=== PATIENT | male | born 1940 | race Caucasian/White ===

== ENCOUNTER 2017-05-01 21:03 | Inpatient (IN) | payer MEDICARE, OTHER ==
--- NOTE | 2017-05-01 21:15 | ER Document Report ---
ED General - General Stated Complaint: DIFFICULTY BREATHING Time Seen by Provider: 05/01/17 21:10 Mode of Arrival: Medic Information source: Emergency Med Personnel Notes: This is a 77-year-old male who is brought from [place] [facility] for respiratory distress and altered mental status. Per EMS, senior living staff reports that patient was altered after his shower this evening and did not eat dinner. They were concerned about his lung sounds and so was a administered two A&A nebs. Upon EMS arrival, patient was completing his second neb treatment and was 89%. EMS was concerned that perhaps he was fluid overloaded. Patient reportedly has a history of prostate cancer, advanced Alzheimer's, and hyperlipidemia. No known history of CHF TRAVEL OUTSIDE OF THE [place] IN LAST 30 DAYS: No - Related Data Allergies/Adverse Reactions: No Known Allergies Allergy (Unverified 05/01/17 21:34) Past Medical History - Social History Smoking Status: Unknown if Ever Smoked Family History: Other - unknown Review of Systems - Review of Systems -: Yes ROS unobtainable due to patient's medical condition - pt nonverbal Physical Exam - Vital signs Vitals: Pulse Resp Pulse Ox 99 22 H 97 05/01/17 21:05 05/01/17 21:05 05/01/17 21:05 - Notes Notes: PHYSICAL EXAMINATION: GENERAL: Ill-appearing elderly male, awake, nonverbal (baseline for pt), eyes open and following some commands. HEAD: Atraumatic, normocephalic. EYES: Pupils equal round and reactive to light, extraocular movements intact, sclera anicteric, conjunctiva are normal. ENT: nares patent, mm dry NECK: supple without lymphadenopathy LUNGS: Diminished bibasilar breath sounds, otherwise Breath sounds clear to auscultation bilaterally anteriorly. HEART: Regular rate and rhythm without murmurs ABDOMEN: Soft, nontender, normoactive bowel sounds. No masses appreciated. EXTREMITIES: No edema noted NEUROLOGICAL: Exam limited secondary to mental status/dementia. No obvious facial droop. Equal sped teacher strength bilaterally. No obvious focal motor deficit appreciated. SKIN: Warm, Dry, normal turgor, no rashes or lesions noted. Course - Re-evaluation Re-evalutation: 05/01/17 21:26 Patient presents acutely ill. However per EMS he has improved significantly since their arrival on scene. He is alert. He appears to be protecting his airway and responding well to BiPAP. - Vital Signs Vital signs: Temp Pulse Resp BP Pulse Ox 99.5 F 92 19 146/81 H 94 05/02/17 04:01 05/02/17 05:31 05/02/17 04:01 05/02/17 04:01 05/02/17 04:01 - Laboratory Result Diagrams: 05/01/17 21:08 05/02/17 02:56 Laboratory results interpreted by me: 05/01/17 05/01/17 05/01/17 21:07 21:08 21:08 WBC 10.6 H RDW 14.7 H Lymphocytes % 11.1 L BUN 26 H Glucose 129 H POC Glucose 139 H Lactic Acid Urine Protein Urine Blood Urine Ascorbic Acid 05/01/17 05/01/17 05/02/17 21:55 22:14 02:56 WBC RDW Lymphocytes % BUN Glucose POC Glucose Lactic Acid 2.4 H 3.8 H Urine Protein 30 H Urine Blood LARGE H Urine Ascorbic Acid 40 H 05/02/17 02:56 WBC RDW Lymphocytes % BUN 24 H Glucose 170 H POC Glucose Lactic Acid Urine Protein Urine Blood Urine Ascorbic Acid - Diagnostic Test Radiology reviewed: Reports reviewed - CTA chest: no obvious PE, no infiltrate - EKG Interpretation by Me Additional EKG results interpreted by me: 05/02/17 01:49 EKG shows normal sinus rhythm with a rate of 87. If in 3 and aVF. R waves noted in V1 and V2. There is no ST segment elevation. There is some ST segment depression V3 through V6. There is no prior EKG for comparison. 05/02/17 01:50 Critical Care Note - Critical Care Note Total time excluding time spent on procedures (mins): 45 - minutes of critical care time spent in direct contact evaluating and reevaluating the patient, treating symptoms, reviewing labs and studies and speaking with family and consultants excluding any procedures Discharge - Discharge Clinical Impression: Respiratory distress Fever Qualifiers: Fever type: unspecified Qualified Code(s): R50.9 - Fever, unspecified Sepsis Qualifiers: Sepsis type: sepsis due to unspecified organism Qualified Code(s): A41.9 - Sepsis, unspecified organism Condition: Serious Disposition: ADMITTED INPATIENT Admitting Provider: Hospitalist - Dr. Davis Unit Admitted: [facility]
[2017-05-01 21:29] LABS: ABSOLUTE BASOPHILS # (AUTO) 0.1 10^3/uL (0.0-0.2); ABSOLUTE EOSINOPHILS # (AUTO) 0.5 10^3/uL (0.0-0.6); ABSOLUTE LYMPHOCYTES (AUTO) 1.2 10^3/uL (0.5-4.7); ABSOLUTE NEUT (AUTO) 7.9 10^3/uL (1.7-8.2); BASOPHILS % (AUTO) 0.6 % (0-2); EOSINOPHILS % (AUTO) 4.9 % (0-6); HEMATOCRIT 45.2 % (37.9-51.0); HEMOGLOBIN 14.9 g/dL (13.5-17.0); HGB HCT DIFFERENCE -0.5; LYMPHOCYTES % (AUTO) 11.1 % (13-45); MEAN CORPUSCULAR HEMOGLOBIN 28.8 pg (27.0-33.4); MEAN CORPUSCULAR VOLUME 87 fl (80-97); RED BLOOD COUNT 5.18 10^6/uL (4.35-5.55); RED CELL DISTRIBUTION WIDTH 14.7 % (11.5-14.0); SEGMENTED NEUTROPHILS % (AUTO) 74.4 % (42-78); WHITE BLOOD COUNT 10.6 10^3/uL (4.0-10.5)
--- NOTE | 2017-05-01 21:35 | RADIOLOGY REPORT (SQ) ---
EXAM DESCRIPTION: CHEST SINGLE VIEW COMPLETED DATE/TIME: 05/01/2017 9:18 pm REASON FOR STUDY: respiratory distress COMPARISON: None. EXAM PARAMETERS: NUMBER OF VIEWS: One view. TECHNIQUE: Single frontal radiographic view of the chest acquired. RADIATION DOSE: NA LIMITATIONS: None. FINDINGS: LUNGS AND PLEURA: No opacities, masses or pneumothorax. No pleural effusion. MEDIASTINUM AND HILAR STRUCTURES: No masses. Contour normal. HEART AND VASCULAR STRUCTURES: Heart normal in size. Normal vasculature. BONES: No acute findings. HARDWARE: None in the chest. OTHER: No other significant finding. IMPRESSION: NO ACUTE RADIOGRAPHIC FINDING IN THE CHEST. TECHNICAL DOCUMENTATION: JOB ID: [id number]
[2017-05-01 21:46] LABS: ALANINE AMINOTRANSFERASE 21 U/L (21-72); ALBUMIN 3.9 g/dL (3.5-5.0); ALKALINE PHOSPHATASE 105 U/L (38-126); ANION GAP 11 (5-19); ASPARTATE AMINO TRANSFERASE 23 U/L (17-59); BILIRUBIN,DIRECT 0.3 mg/dL (0.0-0.4); BILIRUBIN,TOTAL 0.6 mg/dL (0.2-1.3); BLOOD UREA NITROGEN 26 mg/dL (7-20); CALCIUM 9.8 mg/dL (8.4-10.2); CARBON DIOXIDE 27 mmol/L (22-30); CHLORIDE 103 mmol/L (98-107); CREATINE KINASE 78 U/L (55-170); CREATININE RESULT 1.05 mg/dL (0.52-1.25); GLUCOSE 129 mg/dL (75-110); SODIUM 140.6 mmol/L (137-145); TOTAL PROTEIN 7.2 g/dL (6.3-8.2)
[2017-05-01 21:59] LABS: CREATINE KINASE MB < 0.22 ng/mL (<4.55)
[2017-05-01] MEDS ORDERED: ACETAMINOPHEN 325 MG SUPP.RECT PR ONE (22:00)
[2017-05-01 22:06] LABS: VENOUS BLOOD BASE EXCESS -0.3 mmol/L; VENOUS BLOOD HCO3 27.4 mmol/L (20-32); VENOUS BLOOD PCO2 54.7 mmHg (35-63); VENOUS BLOOD PH 7.32 (7.30-7.42)
[2017-05-01 22:20] LABS: APPEARANCE,URINE SLIGHTLY-CLOUDY; BILIRUBIN,URINE NEGATIVE (NEGATIVE); CALCIUM OXALATE CRYSTALS,URINE RARE /HPF; GLUCOSE, URINE NEGATIVE (NEGATIVE); KETONES,URINE NEGATIVE (NEGATIVE); LEUKOCYTE ESTERASE,URINE NEGATIVE (NEGATIVE); NITRITE,URINE NEGATIVE (NEGATIVE); PROTEIN,URINE 30 mg/dL (NEGATIVE); UROBILINOGEN,URINE NEGATIVE mg/dL (<2.0)
[2017-05-01] MEDS ORDERED: LEVOFLOXACIN 750 MG/D5W RTU 150 ML IV ONE (22:25)
[2017-05-01] MEDS ORDERED: PIPERACILLIN/TAZOBACTAM 3.375 GM VIAL IV ONE (22:25)
--- NOTE | 2017-05-01 22:56 | RADIOLOGY REPORT (SQ) ---
EXAM DESCRIPTION: CT HEAD WITHOUT COMPLETED DATE/TIME: 05/01/2017 10:38 pm REASON FOR STUDY: altered mental status COMPARISON: 08/10/2009 TECHNIQUE: Axial images acquired through the brain without intravenous contrast. Images reviewed wi th bone, brain and subdural windows. Images stored on PACS. All CT scanners at this facility use dose modulation, iterative reconstruction, and/or weight based d osing when appropriate to reduce radiation dose to as low as reasonably achievable (ALARA). [facility]: Dose Right [facility]: CareDose [facility]: Dose Right [facility]: Teradose 4D [facility]: [employer] RADIATION DOSE: 64.61mGy. LIMITATIONS: None. FINDINGS: VENTRICLES: Prominent. CEREBRUM: No masses. No hemorrhage. No midline shift. Areas of low density in the white matter mos t likely due to chronic micro-vascular ischemic change. No evidence for acute infarction. CEREBELLUM: No masses. No hemorrhage. No alteration of density. No evidence for acute infarction. EXTRAAXIAL SPACES: Age-related involutional change. No fluid collections. No masses. ORBITS AND GLOBE: No intra- or extraconal masses. Normal contour of globe without masses. CALVARIUM: No fracture. PARANASAL SINUSES: Mucosal thickening with bilateral maxillary sinus mucous retention cyst versus austin yps. No air-fluid levels. SOFT TISSUES: No mass or hematoma. OTHER: No other significant finding. IMPRESSION: CHRONIC CHANGES OF ATROPHY AND MICROVASCULAR ISCHEMIA. CHRONIC PARANASAL SINUS DISEASE. NO ACUTE PROCESS. TECHNICAL DOCUMENTATION: JOB ID: [id number] Quality ID # [id number]: Final reports with documentation of one or more dose reduction techniques (e.g., Au tomated exposure control, adjustment of the mA and/or kV according to patient size, use of iterative reconstruction technique) 2010 [employer]- All Rights Reserved
--- NOTE | 2017-05-01 23:01 | RADIOLOGY REPORT (SQ) ---
EXAM DESCRIPTION: CT CHEST WITHOUT COMPLETED DATE/TIME: 05/01/2017 10:40 pm REASON FOR STUDY: respiratory distress, concern for infiltrate COMPARISON: 08/10/2009 TECHNIQUE: CT scan performed of the chest without intravenous contrast. Images reviewed with lung, soft tissue and bone windows. Reconstructed coronal and sagittal MPR images reviewed. All images st ored on PACS. All CT scanners at this facility use dose modulation, iterative reconstruction, and/or weight based d osing when appropriate to reduce radiation dose to as low as reasonably achievable (ALARA). [facility]: Dose Right [facility]: CareDose [facility]: Dose Right [facility]: Teradose 4D [facility]: [employer] RADIATION DOSE: 14.41 mGy. LIMITATIONS: RESPIRATORY MOTION. FINDINGS: LUNGS AND PLEURA: No masses, infiltrates, pneumothorax. No pleural effusions, calcificati ons. HILAR AND MEDIASTINAL STRUCTURES: No identified masses or abnormal nodes. No obvious aneurysm. HEART AND VASCULAR STRUCTURES: Atherosclerotic calcifications including coronary artery calcification s. No aneurysm. No pericardial effusion. UPPER ABDOMEN: No significant findings. Stable appearance a renal cyst. Limited exam. THYROID AND OTHER SOFT TISSUES: No masses. No adenopathy. BONES: Slight progression degenerative change without acute fracture or suspicious osseous lesion. HARDWARE: None in the chest. OTHER: No other significant findings. IMPRESSION: NO ACUTE INTRATHORACIC PROCESS IDENTIFIED. NO SIGNIFICANT CHANGE FROM PRIOR STUDY. TECHNICAL DOCUMENTATION: JOB ID: [id number] Quality ID # [id number]: Final reports with documentation of one or more dose reduction techniques (e.g., Au tomated exposure control, adjustment of the mA and/or kV according to patient size, use of iterative reconstruction technique) 2010 [employer]- All Rights Reserved
[2017-05-01] MEDS ORDERED: ASPIRIN 300 MG SUPP, RECTAL PR ONE (23:04)
--- NOTE | 2017-05-02 01:01 | RADIOLOGY REPORT (SQ) ---
EXAM DESCRIPTION: CTA CHEST COMPLETED DATE/TIME: 05/02/2017 12:26 am REASON FOR STUDY: Respiratory distress, shortness of breath, acute respiratory failure, decreased O2 saturation COMPARISON: CT chest 05/01/2017, 08/10/2009, chest x-ray 05/01/2017. MRI abdomen 08/30/2009 TECHNIQUE: CT scan of the chest performed using helical scanning technique with dynamic intravenous contrast injection. Images reviewed with lung, soft tissue and bone windows. Reconstructed coronal and sagittal MPR images reviewed. Additional 3 dimensional post-processing performed to develop Maximal Intensity Projection images ([place] P). All images stored on PACS. All CT scanners at this facility use dose modulation, iterative reconstruction, and/or weight based d osing when appropriate to reduce radiation dose to as low as reasonably achievable (ALARA). [facility]: Dose Right [facility]: CareDose [facility]: Dose Right [facility]: Teradose 4D [facility]: [employer] CONTRAST TYPE AND DOSE: 71 mL Isovue 370- low osmolar. RENAL FUNCTION: Creatinine 1.05 RADIATION DOSE: 51.36 mGy. LIMITATIONS: The patient was unable to follow breathing instructions or to raise his arms. There is extensive motion artifact. There is streak artifact from the patient's arms along the body FINDINGS: LUNGS AND PLEURA: No consolidation, pleural effusion or pneumothorax. AORTA AND GREAT VESSELS: No thoracic aortic aneurysm. HEART: No pericardial effusion. Coronary arteries calcifications are noted. PULMONARY ARTERIES: Extensive motion artifact, no obvious emboli visualized in the main pulmonary art eries or the visualized segmental branches. HILAR AND MEDIASTINAL STRUCTURES: No identified masses or abnormal nodes. HARDWARE: None in the chest. UPPER ABDOMEN: Multiple low density lesions at the visualized kidneys, may represent cysts. Atherosc lerotic calcifications with irregular intramural thrombus in the visualized abdominal aorta. 3.4 x 3 .2 cm infrarenal abdominal aortic aneurysm. No periaortic fluid collection. THYROID AND OTHER SOFT TISSUES: No masses. No adenopathy. BONES: Degenerative changes in the spine. Compression deformity through the superior endplate of T12 vertebral body, new since the prior CT chest from 08/10/2009. 3D MIPS: Confirm above findings. IMPRESSION: Study degraded by extensive motion artifact. No obvious pulmonary emboli. If clinical concern persists, a repeat study can be obtained when patient will be able to cooperate with position ing. Atherosclerotic calcifications with irregular intramural thrombus in the visualized abdominal aorta. 3.4 x 3.2 cm infrarenal abdominal aortic aneurysm. Compression deformity through the superior endplate of T12 vertebral body, of indeterminate age, new since the prior CT chest from 08/10/2009. Please correlate with point tenderness. If there is clinic al concern for acute fracture, further evaluation with MRI can be obtained. TECHNICAL DOCUMENTATION: JOB ID: [id number] OH-64 Quality ID # 436: Final reports with documentation of one or more dose reduction techniques (e.g., Au tomated exposure control, adjustment of the mA and/or kV according to patient size, use of iterative reconstruction technique) 2010 [employer]- All Rights Reserved
[2017-05-02] MEDS ORDERED: ALBUTEROL SULFATE 0.083% NEB 2.5 MG/3 ML AMPUL NEB ONE (01:04)
[2017-05-02] MEDS ORDERED: NORMAL SALINE 500 ML IV ONE (01:21)
[2017-05-02] MEDS ORDERED: METOPROLOL TARTRATE PF/INJ 5 MG/5 ML SDV IV ONE (02:24)
[2017-05-02] MEDS ORDERED: METHYLPREDNISOLONE INJ 40 MG/1 ML SDV ONE (02:45)
[2017-05-02] MEDS ORDERED: DEXTROSE 50%-WATER 25 GM/50 ML DISP.SYRIN IV PRN ×2 (02:59)
[2017-05-02] MEDS ORDERED: DEXTROSE 40% GEL 15 GM TUBE PO PRN ×2 (02:59)
[2017-05-02] MEDS ORDERED: INSULIN LISPRO 100 UNIT/ML 3 ML VIAL SUBCUT PRN (02:59)
[2017-05-02] MEDS ORDERED: GLUCAGON,HUMAN RECOMB 1 MG INJ IM PRN (02:59)
[2017-05-02] MEDS ORDERED: METHYLPREDNISOLONE INJ 40 MG/1 ML SDV IV ONE (03:00)
[2017-05-02] MEDS ORDERED: NORMAL SALINE 1000 ML 1,000 ML IV PRN (03:01)
[2017-05-02] MEDS ORDERED: ALBUTEROL SULFATE 0.083% NEB 2.5 MG/3 ML AMPUL NEB PRN ×2 (03:01→03:22)
[2017-05-02] MEDS ORDERED: ACETAMINOPHEN 650 MG SUPP.RECT PR PRN (03:08)
[2017-05-02 03:09] LABS: ADD ON TESTING BLD IN LAB ACKNOWLEDGE
--- NOTE | 2017-05-02 03:21 | PDOC H&P ---
History of Present Illness Admission Date/PCP: 05/02/17 01:52 BEE JENNINGS Patient complains of: DIFFICULTY BREATHING History of Present Illness: SOFÍA GREENBERG is a 77 year old male, resident of [facility] , with history of prostate cancer, hyperlipidemia, and advanced Alzheimer's, and no known history of congestive heart failure, who presents to the emergency room for evaluation of above complaint. Patient has been discussed with emergency room physician who evaluated the patient. Patient is aphasic, and basically not interactive with his surroundings, and is able to provide no history whatsoever in terms of acute or chronic events, review of systems, personal habits, family history, etc. No friends or family are present. No old inpatient records available for review.. . Was noted by [facility] staff to not have eaten his evening meal, along with coarse respiratory sounds. Was given 2 duo nebs at the [facility]. On EMS arrival, as he was receiving a second DuoNeb, saturation was 89%. No further information available this point in time. Laboratory results are listed in [facility] and are reviewed. X-ray summary results are listed below, with full report(s) reviewed. . EKG reviewed. No old EKG available for comparison. Social history/personal habits: Resident of [facility]. No further information available this point in time. No known drug allergies. Home medications initially autopopulated into [employer] may not accurately reflect patient's true medications, dosages, and/or frequencies. plastic technician to reconcile medications. Unfortunately, patient not able to provide any information related to medications/dosages/frequencies. REVIEW OF SYSTEMS: See history and present illness. No further information available this point in time. PHYSICAL EXAMINATION: 5 feet 8 inches tall. 77.8 kg. BMI 26.1 kg/m. Pulse 107 and regular. Blood pressure 174/83. 93% saturation on 2 L oxygen per nasal cannula. Respirations are 32, with somewhat coarse upper airway sounds, which which clear almost completely with nasotracheal suctioning by respiratory therapy. Remains quite tachypneic, however. Making mild occasional use of accessory respiratory muscles. Somewhat overweight but also somewhat stocky otherwise well-developed male appearing approximately his stated age. Does not open eyes when name is called in a loud voice. Again, basically not interactive with his surroundings. Maintaining airway well. Skin is warm and dry. No grossly obvious evidence of rash in areas of skin examined. No subcutaneous nodules palpated. ENT: Hearing difficult to evaluate due to his current status. Eyes: No scleral icterus. Pupils equal and reactive to light at 4 mm. [place] conjunctivae. No raccoon eyes. Neck is nontender to palpation. Midline trachea. No palpable thyroid nodule mass enlargement or tenderness. Lymphatic: No palpable cervical or clavicular nodes. Neck and lymphatic exams limited by patient body habitus. Psychiatric: Cannot be adequately evaluated due to his current status.. Lungs: Auscultation reveals equal breath sounds bilaterally. No use of accessory respiratory muscles. As noted above, initially coarse upper airway sounds, which almost completely clear with nasotracheal suctioning. Mild brief expiratory wheezing, perhaps a bit more noticeable on the left. Cardiovascular: Heart regular rate and rhythm, without gallop murmur or rub. No carotid or abdominal aortic bruits. No ankle or pedal edema. Palpable dorsalis pedis pulses. Abdomen:soft slightly distended nontender with positive bowel sounds. Unable to adequately evaluate abdomen for masses or organomegaly due to distention. Extremities: Feet are warm and dry. No calf tenderness to compression. No grossly obvious visual evidence of calf swelling. Gentle manipulation of lower extremities reveals somewhat decreased range of motion at knees and hips, likely secondary to chronic condition. Neurologic: Moves upper extremities grossly normally. Patellar reflexes absent. Absent Babinski. Light touch cannot be determined due to his current status. Past Medical History Past Medical History: See history and present illness. No further information available this point in time. Psychiatric Medical History: Reports: Dementia Past Surgical History Past Surgical History: Patient unable to provide any information at this time. Social History Information Source: Emergency Med Personnel, [facility] Records Lives with: Group Home Smoking Status: Unknown if Ever Smoked Frequency of Alcohol Use: None - Patient unable to provide any information at this time. Drugs: None - Patient unable to provide any information at this time. - Advance Directive Resuscitation Status: Full Code Surrogate healthcare decision maker:: Uncertain Family History Family History: Other - unknown Parental Family History Reviewed: No - Patient unable to provide any information at this time. Children Family History Reviewed: No - Patient unable to provide any information at this time. Sibling(s) Family History Reviewed.: No - Patient unable to provide any information at this time. Medication/Allergy Home Medications: RX: Acetaminophen [Tylenol 325 mg Tablet] 650 mg PO Q4HP PRN 05/02/17 RX: Atorvastatin Calcium [Lipitor 20 mg Tablet] 20 mg PO QHS 05/02/17 RX: Calcium Carbonate/Vitamin D3 [Oyster Shell 500-Vit D3 200 Tb] 1 tab PO DAILY 05/02/17 RX: Leuprolide Acetate [Lupron Depot Inj 22.5 mg Kit] 22.5 mg IM .ASDIR RX: Loratadine [Claritin 10 mg Tablet] 10 mg PO DAILYP PRN 05/02/17 RX: Melatonin 5 mg PO QHS 05/02/17 RX: Meloxicam [Mobic 7.5 mg Tablet] 7.5 mg PO DAILY 05/02/17 Amox Tr/Potassium Clavulanate [Augmentin 875-125 mg Tablet] 1 tab PO BID #20 tablet 05/07/17 RX: Amlodipine Besylate [Norvasc 5 mg Tablet] 5 mg PO DAILY tablet 05/07/17 RX: Ipratropium/Albuterol Sulfate [Duoneb 3 ml Ampul] 3 ml [facility] [id number] vial.neb 05/07/17 RX: Prednisone [Deltasone 20 mg Tablet] 20 mg PO DAILY #5 tablet 05/07/17 Allergies/Adverse Reactions: No Known Allergies Allergy (Unverified 05/01/17 21:34) Physical Exam Vital Signs: Temp Pulse Resp BP Pulse Ox 101.1 F H 99 25 H 178/88 H 97 05/02/17 01:16 05/01/17 21:05 05/02/17 00:00 05/01/17 23:31 05/02/17 00:00 Results Impressions: Chest X-Ray 05/01/17 21:11 IMPRESSION: NO ACUTE RADIOGRAPHIC FINDING IN THE CHEST. Chest CT 05/01/17 21:21 IMPRESSION: NO ACUTE INTRATHORACIC PROCESS IDENTIFIED. NO SIGNIFICANT CHANGE FROM PRIOR STUDY. Head CT 05/01/17 21:21 IMPRESSION: CHRONIC CHANGES OF ATROPHY AND MICROVASCULAR ISCHEMIA. CHRONIC PARANASAL SINUS DISEASE. NO ACUTE PROCESS. Chest/Abdomen CTA 05/01/17 23:13 IMPRESSION: Study degraded by extensive motion artifact. No obvious pulmonary emboli. If clinical concern persists, a repeat study can be obtained when patient will be able to cooperate with positioning. Atherosclerotic calcifications with irregular intramural thrombus in the visualized abdominal aorta. 3.4 x 3.2 cm infrarenal abdominal aortic aneurysm. Compression deformity through the superior endplate of T12 vertebral body, of indeterminate age, new since the prior CT chest from 08/10/2009. Please correlate with point tenderness. If there is clinical concern for acute fracture, further evaluation with MRI can be obtained. Assessment & Plan - Diagnosis (1) Acute on chronic respiratory failure with hypoxia and hypercapnia Is this a current diagnosis for this admission?: YesPlan: Patient will be admitted under COPD exacerbation protocol. Incentive spirometry twice a day. Scheduled DuoNeb's. As needed albuterol nebs. Solu-Medrol. IV Pepcid for gastritis prophylaxis. Antibiotics will consist of Rocephin and intravenous Zithromax. Patient is a full code. Knee high SCDs for DVT prophylaxis, along with subcutaneous Lovenox. Time spent in evaluation and management of patient: 51 critical-care minutes. (2) DVT prophylaxis Is this a current diagnosis for this admission?: Yes (3) Fever Qualifiers: Fever type: unspecified Qualified Code(s): R50.9 - Fever, unspecified Is this a current diagnosis for this admission?: YesPlan: No obvious source, but suspect pneumonia. See above. (4) Dementia Qualifiers: Dementia type: unspecified type Dementia behavioral disturbance: without behavioral disturbance Qualified Code(s): F03.90 - Unspecified dementia without behavioral disturbance Is this a current diagnosis for this admission?: Yes - Inpatient Certification Based on my medical assessment, after consideration of the patient's comorbidities, presenting symptoms, or acuity I expect that the services needed warrant INPATIENT care.: Yes I certify that my determination is in accordance with my understanding of Medicare's requirements for reasonable and necessary INPATIENT services [42 CFR 412.3e].: Yes Medical Necessity: Need Close Monitoring Due to Risk of Patient Decompensation, Need For IV Fluids, Need For Continuous Telemetry Monitoring, Need for Nebulizer Therapy and Monitoring of Response, Need for IV Antibiotics, Risk of Complication if Not Cared For in Hospital Post Hospital Care: D/C or Transfer Summary
[2017-05-02 03:30] LABS: VENOUS BLOOD BASE EXCESS -1.4 mmol/L; VENOUS BLOOD HCO3 23.7 mmol/L (20-32); VENOUS BLOOD PCO2 41.2 mmHg (35-63); VENOUS BLOOD PH 7.38 (7.30-7.42)
[2017-05-02 03:35] LABS: ANION GAP 13 (5-19); BLOOD UREA NITROGEN 24 mg/dL (7-20); CALCIUM 9.5 mg/dL (8.4-10.2); CARBON DIOXIDE 23 mmol/L (22-30); CHLORIDE 107 mmol/L (98-107); CREATININE RESULT 0.92 mg/dL (0.52-1.25); GLUCOSE 170 mg/dL (75-110); POTASSIUM 3.9 mmol/L (3.6-5.0); SODIUM 143.2 mmol/L (137-145)
[2017-05-02 06:33] LABS: VENOUS BLOOD BASE EXCESS -3.5 mmol/L; VENOUS BLOOD HCO3 22.6 mmol/L (20-32); VENOUS BLOOD PCO2 44.4 mmHg (35-63); VENOUS BLOOD PH 7.32 (7.30-7.42)
[2017-05-02 06:35] LABS: HEMATOCRIT 43.7 % (37.9-51.0); HEMOGLOBIN 14.3 g/dL (13.5-17.0); HGB HCT DIFFERENCE -0.8; MEAN CORPUSCULAR HEMOGLOBIN 28.5 pg (27.0-33.4); MEAN CORPUSCULAR HGB CONC 32.6 g/dL (32.0-36.0); MEAN CORPUSCULAR VOLUME 87 fl (80-97); RED CELL DISTRIBUTION WIDTH 14.6 % (11.5-14.0); WHITE BLOOD COUNT 16.4 10^3/uL (4.0-10.5)
[2017-05-02 07:12] LABS: BAND NEUTROPHILS % (MANUAL) 5 % (3-5); BASOPHILS % (MANUAL) 0 % (0-2); EOSINOPHILS % (MANUAL) 0 % (0-6); LYMPHOCYTES % (MANUAL) 3 % (13-45); TOTAL CELLS COUNTED 100
[2017-05-02 07:14] LABS: ANISOCYTOSIS SLIGHT; BURR CELLS SLIGHT; OVALOCYTES 1+; POIKILOCYTOSIS SLIGHT
[2017-05-02] MEDS ORDERED: IPRATROPIUM/ALBUTEROL 0.5-2.5 MG/3 ML AMPUL NEB SCH (08:00)
[2017-05-02] MEDS: FAMOTIDINE INJ/PF 20 MG/2 ML SDV IV SCH ×2 (09:23→22:15)
[2017-05-02] MEDS: METHYLPREDNISOLONE INJ 40 MG/1 ML SDV IV SCH ×2 (09:23→17:20)
[2017-05-02] MEDS: ENOXAPARIN SODIUM INJ 40 MG/0.4 ML DISP.SYRIN SUBCUT SCH (09:24)
[2017-05-02] MEDS ORDERED: AZITHROMYCIN 500 MG in DEXTROSE 5%-WATER 250 ML IV SCH (10:00)
[2017-05-02] MEDS ORDERED: CEFTRIAXONE 1 GM/D5W RTU 50 ML IV SCH (10:00)
--- NOTE | 2017-05-02 10:51 | EKG REPORT ---
SEVERITY:- ABNORMAL ECG - SINUS RHYTHM INFERIOR INFARCT, AGE INDETERMINATE CONSIDER POSTERIOR WALL INVOLVEMENT : Confirmed by: Leora Jo 02-May-2017 10:50:39
[2017-05-02] MEDS ORDERED: FUROSEMIDE INJ/PF 40 MG/4 ML SDV IV ONE ×2 (11:45→16:00)
[2017-05-02] MEDS ORDERED: FUROSEMIDE 40 MG TABLET PO ONE (12:00)
[2017-05-02] MEDS ORDERED: ALBUTEROL SULFATE 0.042% NEB (1.25 MG/3 ML) AMPUL NEB PRN (13:36)
[2017-05-02] MEDS: IPRATROPIUM/ALBUTEROL 0.5-2.5 MG/3 ML AMPUL NEB SCH ×2 (14:00→19:30)
--- NOTE | 2017-05-02 14:19 | PROGRESS NOTE E ---
Progress Note NAME: SOFÍA GREENBERG : 1940 AGE: 77Y DATE: 05/02/2017 ROOM: 301 SUBJECTIVE: The patient was seen earlier today on rounds. His was present at the bedside aiding in the patient's care. The stated that the patient did indeed have advance directive and after discussion, has elected to proceed with DO NOT RESUSCITATE/DO NOT INTUBATE status. In spite of efforts overnight, the patient has continued to have crackling gurgling sounds. The patient has been receiving IV fluids overnight. The patient has been afebrile. His blood pressures have been in a good range. The patient is unable to voice any concerns at this time. REVIEW OF SYSTEMS: Cannot be appreciated given the patient's mental status. MEDICATIONS: Medications have been reviewed. OBJECTIVE: GENERAL: The patient is an unfortunate, 77-year-old male who is only minimally responsive. He does appear to be in some mild distress. VITAL SIGNS: As follows: Temperature is 98.5, pulse 78, respirations 20, blood pressure is 142/65, oxygen saturation is 96% on 6L nasal cannula. SKIN: Warm and dry. No rash. Not diaphoretic. HEENT: Pupils are equal, round and reactive to light and accommodation. Conjunctivae are pale. There is no JVD. CARDIOVASCULAR SYSTEM: Heart is regular. There is no murmur or rub. CHEST: The patient does have diffuse crackles and rales noted in lung paez, symmetrical, does appear to be labored. ABDOMEN: Soft, nontender, nondistended. BACK: No CVA tenderness or sacral edema. EXTREMITIES: No clubbing, cyanosis, or edema. PSYCHIATRIC: Unable to fully assess. DIAGNOSTICS: 1. Lab values are as follows: a. Hematology obtained on 05/02/2017: WBC 19, hemoglobin 14.3, hematocrit 43.7, platelet count is 164,00. b. Venous blood gas obtained on 05/02/2017; pH of 7.32, pCO2 of 44.4, bicarb of 22.6. c. Chemistry obtained on 05/02/2017: Sodium 143, potassium 4.5, chloride 107, carbon dioxide 23, BUN 24, creatinine 0.92, glucose 170, calcium 9.5, lactic acid 3.8. IMPRESSION AND PLAN: 1. VASCULAR CONGESTION. The patient has no prior evidence of heart failure; however, he does appear to be volume up. Will diurese the patient and follow. We will replace potassium as needed. 2. POSSIBLE PNEUMONIA. Would have a suspicion for aspiration pneumonia. Will transition coverage to more broad spectrum and follow. 3. SEPSIS, MOST LIKELY SECONDARY TO #2. The patient is no longer febrile. We will continue antibiotics and await cultures. The patient's blood pressure is stable at this time. Will repeat lactic acid. 4. ALZHEIMER'S DISEASE. The patient has been on a steady decline. DISPOSITION: The patient is a DO NOT RESUSCITATE/DO NOT INTUBATE. Pending patient's symptomatology and diagnostic findings, will re-evaluate as needed. Given the patient's current clinical picture, it does appear his prognosis is poor. TIME SPENT: Time spent on this follow up including assessment, plan, physical examination, attempted patient education, family members was 35 minutes. DICTATING PHYSICIAN: KEIKO RUSSO NP [id number] PHY#: [id number] ID: [id number] JOB#: [id number] ACCT: [id number] cc: > MTDD
[2017-05-02] MEDS ORDERED: POTASSI CL 20 MEQ/50 ML RIDER 50 ML IV ONE (16:00)
[2017-05-02] MEDS: PIPERACILLIN SODIUM/TAZOBACTAM 3.375 GM in NORMAL SALINE 100 ML IV SCH ×2 (16:11→22:10)
[2017-05-03] MEDS: METHYLPREDNISOLONE INJ 40 MG/1 ML SDV IV SCH ×3 (01:18→18:15)
[2017-05-03] MEDS: PIPERACILLIN SODIUM/TAZOBACTAM 3.375 GM in NORMAL SALINE 100 ML IV SCH ×4 (03:11→20:34)
[2017-05-03 05:18] LABS: HEMATOCRIT 40.4 % (37.9-51.0); HEMOGLOBIN 13.6 g/dL (13.5-17.0); HGB HCT DIFFERENCE 0.4; MEAN CORPUSCULAR HEMOGLOBIN 29.4 pg (27.0-33.4); MEAN CORPUSCULAR HGB CONC 33.6 g/dL (32.0-36.0); MEAN CORPUSCULAR VOLUME 87 fl (80-97); RED BLOOD COUNT 4.63 10^6/uL (4.35-5.55); RED CELL DISTRIBUTION WIDTH 14.5 % (11.5-14.0); WHITE BLOOD COUNT 9.4 10^3/uL (4.0-10.5)
[2017-05-03 05:38] LABS: ANION GAP 13 (5-19); BLOOD UREA NITROGEN 24 mg/dL (7-20); CALCIUM 9.8 mg/dL (8.4-10.2); CARBON DIOXIDE 26 mmol/L (22-30); CHLORIDE 105 mmol/L (98-107); CREATININE RESULT 0.89 mg/dL (0.52-1.25); GLUCOSE 151 mg/dL (75-110); MAGNESIUM 2.4 mg/dL (1.6-2.3); POTASSIUM 3.4 mmol/L (3.6-5.0); SODIUM 143.6 mmol/L (137-145)
[2017-05-03] MEDS: IPRATROPIUM/ALBUTEROL 0.5-2.5 MG/3 ML AMPUL NEB SCH ×3 (08:30→19:40)
[2017-05-03] MEDS: ENOXAPARIN SODIUM INJ 40 MG/0.4 ML DISP.SYRIN SUBCUT SCH (09:45)
[2017-05-03] MEDS: FAMOTIDINE INJ/PF 20 MG/2 ML SDV IV SCH ×2 (09:47→22:03)
[2017-05-04] MEDS: METHYLPREDNISOLONE INJ 40 MG/1 ML SDV IV SCH ×2 (01:52→09:21)
[2017-05-04] MEDS: PIPERACILLIN SODIUM/TAZOBACTAM 3.375 GM in NORMAL SALINE 100 ML IV SCH ×4 (03:47→20:40)
[2017-05-04] MEDS: ENOXAPARIN SODIUM INJ 40 MG/0.4 ML DISP.SYRIN SUBCUT SCH (08:13)
[2017-05-04] MEDS: IPRATROPIUM/ALBUTEROL 0.5-2.5 MG/3 ML AMPUL NEB SCH ×3 (08:25→19:45)
[2017-05-04] MEDS: FAMOTIDINE INJ/PF 20 MG/2 ML SDV IV SCH ×2 (09:19→22:13)
--- NOTE | 2017-05-04 11:49 | PROGRESS NOTE E ---
Progress Note NAME: SOFÍA GREENBERG : 1940 AGE: 77Y DATE: 05/04/2017 ROOM: 301 SUBJECTIVE: Mr. Greenberg is lying in bed. He will awaken and makes eye contact which is the most alert I have seen him since he has been here. The patient did participate for a swallow evaluation. Spoke with Speech Therapy and the patient appears very high risk for aspiration. Dietary recommendations have been made. Will defer modified for now as patient most likely will not cooperate for this. The patient's overall respiratory state is improved and patient is not able to voice any specific concern at this time. REVIEW OF SYSTEMS: Unobtainable. MEDICATIONS: Have been reviewed. OBJECTIVE: GENERAL: The patient is a 77-year-old male who will awaken but unable to fully assess orientation. He does not appear to be distressed. VITAL SIGNS: Temperature 97.7, pulse 65, respirations 20, blood pressure 167/85, oxygen saturation is 96% on 3 L nasal cannula. SKIN: Warm and dry. No rash. Not diaphoretic. He is pale. HEENT: No JVD. Pupils are reactive. Conjunctivae are pink. CARDIOVASCULAR: Heart is regular with no murmur or rub. CHEST: Patient does have bilateral rhonchus breath sounds. Symmetrical and unlabored. ABDOMEN: Soft, nontender, nondistended. BACK: No CVA tenderness or sacral edema. EXTREMITIES: No clubbing, cyanosis, or edema. DIAGNOSTICS: Lab values are as follows. Hematology obtained on 05/03/2017: WBCs are 9.4, hemoglobin is 13.6, hematocrit is 40.4, platelet count is 157,000. Chemistry obtained on 05/03/2017: Sodium is 143, potassium 3.4, chloride is 105, carbon dioxide 26, BUN 24, creatinine is 0.89, glucose 151, calcium is 9.8, magnesium is 2.4. Microbiology: Blood cultures obtained on 05/01/2017 reveal no growth. IMPRESSION AND PLAN: 1. ASPIRATION PNEUMONIA. The patient does not have findings on chest x-ray, however, he does have clinical findings of such. Discussed the case with Speech Therapy. The patient is very high risk but will proceed with diet with aspiration precautions and monitor his intake for today. If the patient develops coughing or symptoms, will transition to n.p.o. and scheduled a modified. Will continue antibiotic coverage. 2. VASCULAR CONGESTION. The patient had no prior evidence of heart failure. He did diurese well and potassium was replaced. 3. SEPSIS MOST LIKELY SECONDARY TO THE PATIENT'S PNEUMONIA. He is no longer febrile. Cultures were unremarkable. Unable to obtain sputum culture. Unfortunately the patient's blood pressures are creeping back up. 4. HYPERTENSION. Will manage conservatively. 5. ALZHEIMER'S DISEASE. The patient has been on a steady decline. Most likely he is probably aspirating now. Will discuss implications of continuing diet with modifications and aspiration precautions versus proceeding with a modified. Will consult palliative care to aid in navigating setting of goals. DISPOSITION: The patient is a DO RESUSCITATE/DO NOT INTUBATE. Pending patient's symptomatology and diagnostic findings, will reevaluate in the a.m. Time spent on this followup including assessment, plan, physical examination, attempt at patient education is 25 minutes. DICTATING PHYSICIAN: KEIKO RUSSO NP [id number] PHY#: [id number] ID: [id number] JOB#: [id number] ACCT: [id number] cc: >
[2017-05-04] MEDS: PREDNISONE 20 MG TABLET PO SCH (17:00)
[2017-05-04] MEDS ORDERED: ENALAPRILAT DIHYDRATE INJ/PF 1.25 MG/1 ML SDV IV ONE ×2 (20:20→23:15)
[2017-05-04] MEDS: ENALAPRILAT DIHYDRATE INJ/PF 1.25 MG/1 ML SDV IV PRN (20:28)
[2017-05-05] MEDS ORDERED: ENALAPRILAT DIHYDRATE INJ/PF 1.25 MG/1 ML SDV IV ONE (00:24)
[2017-05-05] MEDS ORDERED: HYDRALAZINE HCL INJ/PF 20 MG/1 ML SDV ONE (04:03)
[2017-05-05] MEDS: PIPERACILLIN SODIUM/TAZOBACTAM 3.375 GM in NORMAL SALINE 100 ML IV SCH ×4 (04:07→20:33)
[2017-05-05] MEDS ORDERED: HYDRALAZINE HCL INJ/PF 20 MG/1 ML SDV IV ONE (04:15)
[2017-05-05 04:39] LABS: HEMATOCRIT 41.2 % (37.9-51.0); HEMOGLOBIN 13.7 g/dL (13.5-17.0); HGB HCT DIFFERENCE -0.1; MEAN CORPUSCULAR HGB CONC 33.2 g/dL (32.0-36.0); MEAN CORPUSCULAR VOLUME 87 fl (80-97); RED BLOOD COUNT 4.72 10^6/uL (4.35-5.55); RED CELL DISTRIBUTION WIDTH 14.5 % (11.5-14.0); WHITE BLOOD COUNT 8.4 10^3/uL (4.0-10.5)
[2017-05-05 05:00] LABS: ANION GAP 10 (5-19); BLOOD UREA NITROGEN 35 mg/dL (7-20); CALCIUM 9.6 mg/dL (8.4-10.2); CARBON DIOXIDE 29 mmol/L (22-30); CHLORIDE 110 mmol/L (98-107); CREATININE RESULT 0.83 mg/dL (0.52-1.25); GLUCOSE 124 mg/dL (75-110); MAGNESIUM 2.7 mg/dL (1.6-2.3)
[2017-05-05] MEDS ORDERED: POTASSIUM CHLORIDE 20 MEQ/15 ML UDCUP PO ONE (06:00)
[2017-05-05] MEDS ORDERED: POTASSIUM CHLORIDE 20 MEQ/15 ML UDCUP ONE (06:02)
[2017-05-05] MEDS ORDERED: POTASSI CL 20 MEQ/50 ML RIDER 20 MEQ/50 ML RTUPB IV ONE (06:54)
[2017-05-05] MEDS: POTASSI CL 20 MEQ/50 ML RIDER 20 MEQ/50 ML RTUPB IV SCH ×3 (07:10→12:13)
[2017-05-05] MEDS ORDERED: POTASSIUM CHLORIDE 20 MEQ/15 ML UDCUP PO SCH (07:30)
[2017-05-05] MEDS: IPRATROPIUM/ALBUTEROL 0.5-2.5 MG/3 ML AMPUL NEB SCH ×3 (07:45→19:48)
[2017-05-05] MEDS: ENOXAPARIN SODIUM INJ 40 MG/0.4 ML DISP.SYRIN SUBCUT SCH (08:03)
[2017-05-05] MEDS: PREDNISONE 20 MG TABLET PO SCH ×2 (10:03→17:43)
[2017-05-05] MEDS: FAMOTIDINE INJ/PF 20 MG/2 ML SDV IV SCH ×2 (10:05→21:50)
[2017-05-05] MEDS: ENALAPRILAT DIHYDRATE INJ/PF 1.25 MG/1 ML SDV IV PRN (12:29)
--- NOTE | 2017-05-05 16:37 | PDOC PROGRESS REPORT ---
Subjective Progress Note for:: 05/05/17 Subjective:: Patient seen on morning rounds. He is resting in bed. Patient has history of dementia, and is presently confused to time and place. He shakes his head known asked if he is having any shortness of breath or pain. There is reports improvement in his respiratory status. Review of systems are unable to be obtained due to patient's mentation. Physical Exam Vital Signs: Temp Pulse Resp BP Pulse Ox 98.7 F 69 19 182/93 H 96 05/05/17 11:16 05/05/17 14:08 05/05/17 14:08 05/05/17 11:16 05/05/17 11:16 Intake & Output 05/04/17 05/05/17 05/06/17 06:59 06:59 06:59 Intake Total 685 558 137 Output Total 0 Balance 685 558 137 Weight 78.7 kg 77.3 kg General appearance: PRESENT: no acute distress, well-developed, well-nourished Head exam: PRESENT: atraumatic, normocephalic Eye exam: PRESENT: conjunctiva pink, EOMI, PERRLA. ABSENT: scleral icterus Ear exam: PRESENT: normal external ear exam Mouth exam: PRESENT: moist, tongue midline Neck exam: PRESENT: carotid bruit Respiratory exam: PRESENT: rhonchi, symmetrical, unlabored Cardiovascular exam: PRESENT: RRR. ABSENT: diastolic murmur, rubs, systolic murmur Pulses: PRESENT: normal dorsalis pedis pul Vascular exam: PRESENT: normal capillary refill GI/Abdominal exam: PRESENT: normal bowel sounds, soft. ABSENT: distended, guarding, mass, organolmegaly, rebound, tenderness Rectal exam: PRESENT: deferred Extremities exam: PRESENT: full ROM. ABSENT: calf tenderness, clubbing, pedal edema Neurological exam: PRESENT: alert, oriented to person, CN II-XII grossly intact Psychiatric exam: PRESENT: flat affect Skin exam: PRESENT: dry, intact, warm. ABSENT: cyanosis, rash Results Laboratory Results: 05/05/17 04:03 05/05/17 04:03 05/05/17 05/05/17 04:03 04:03 WBC 8.4 RBC 4.72 Hgb 13.7 Hct 41.2 MCV 87 MCH 29.0 MCHC 33.2 RDW 14.5 H Plt Count 184 Sodium 149.0 H Potassium 3.0 L* Chloride 110 H Carbon Dioxide 29 Anion Gap 10 BUN 35 H Creatinine 0.83 Est GFR ( Amer) > 60 Est GFR (Non-Af Amer) > 60 Glucose 124 H Calcium 9.6 Magnesium 2.7 H Impressions: Chest X-Ray 05/01/17 21:11 IMPRESSION: NO ACUTE RADIOGRAPHIC FINDING IN THE CHEST. Chest CT 05/01/17 21:21 IMPRESSION: NO ACUTE INTRATHORACIC PROCESS IDENTIFIED. NO SIGNIFICANT CHANGE FROM PRIOR STUDY. Head CT 05/01/17 21:21 IMPRESSION: CHRONIC CHANGES OF ATROPHY AND MICROVASCULAR ISCHEMIA. CHRONIC PARANASAL SINUS DISEASE. NO ACUTE PROCESS. Chest/Abdomen CTA 05/01/17 23:13 IMPRESSION: Study degraded by extensive motion artifact. No obvious pulmonary emboli. If clinical concern persists, a repeat study can be obtained when patient will be able to cooperate with positioning. Atherosclerotic calcifications with irregular intramural thrombus in the visualized abdominal aorta. 3.4 x 3.2 cm infrarenal abdominal aortic aneurysm. Compression deformity through the superior endplate of T12 vertebral body, of indeterminate age, new since the prior CT chest from 08/10/2009. Please correlate with point tenderness. If there is clinical concern for acute fracture, further evaluation with MRI can be obtained. Assessment & Plan - Diagnosis (1) Acute on chronic respiratory failure with hypoxia and hypercapnia Is this a current diagnosis for this admission?: YesPlan: Improve antibiotics and respiratory therapy treatment (2) HTN (hypertension) Qualifiers: Hypertension type: essential hypertension Qualified Code(s): I10 - Essential (primary) hypertension Is this a current diagnosis for this admission?: YesPlan: Patient is presently normotensive (3) Sepsis Qualifiers: Sepsis type: sepsis due to unspecified organism Qualified Code(s): A41.9 - Sepsis, unspecified organism Is this a current diagnosis for this admission?: YesPlan: Tachycardia, fever and hypotension resolved with IV antibiotics and fluids. (4) Dementia Qualifiers: Dementia type: unspecified type Dementia behavioral disturbance: without behavioral disturbance Qualified Code(s): F03.90 - Unspecified dementia without behavioral disturbance Is this a current diagnosis for this admission?: YesPlan: Patient was evaluated by speech and found to have high risk for aspiration. Family does not wish to have PEG tube placed. Palliative care was consulted for symptom management and goals of care discussion. - Time Time Spent with patient: 25-34 minutes Critical Time spent with patient: 15-24 minutes Medications reviewed and adjusted accordingly: Yes Anticipated discharge: SNF Within: within 48 hours
--- NOTE | 2017-05-05 23:11 | Palliative Consultation Report ---
Consultation - HPI HPI: Visit made at 11:45 am with patient and his . Appreciate palliative consult with this 77 year old man who has history of dementia and has been a patient at [facility] for two years. His is a small woman who was diagnosed with breast cancer two years ago and after her mastectomy, could no longer lift and turn patient at home. She had to put him in SNF but she visits daily to feed him his lunch. She states he has declined a great deal in the past fem months. He has expressive aphasia and used to try to communicate with her more in the past, now it is just yes/no responses. He is having swallowing difficulties and had swallowing studies done during this admission. In spite of this and much less PO intake of food, he is still a muscular man and COPD He also has history ofprostate cancer. He could walk with help when he went to SNF but is bedfast now. Mrs. Jolley has requested DNR status and when PEG tube mentioned, she said "No, I want him comfortable, but no feeding tube". She is aware of his decline and expected continued decline. Nurse states patient had goo blood sugar this Am, and she was able to feed him a bowl of cream of wheat with sugar for breakfast. Then after breakfast his blood sugar fell to 40 and he has been less responsive than he was earlier this AM. He is nw asleep and is not responding to his except to open his eyes. Onset: Last week Onset/Duration: Gradual Quality of Pain: No pain Associated Symptoms: Shortness of breath, Slow to respond, Weakness Exacerbated by: Movement Past Medical History(Consults) - General Information Source: Relative, [facility] Records Home Medications: Acetaminophen [Tylenol 325 mg Tablet] 650 mg PO Q4HP PRN 05/02/17 Atorvastatin Calcium [Lipitor 20 mg Tablet] 20 mg PO QHS 05/02/17 Calcium Carbonate/Vitamin D3 [Oyster Shell 500-Vit D3 200 Tb] 1 tab PO DAILY 02/13 Leuprolide Acetate [Lupron Depot Inj 22.5 mg Kit] 22.5 mg IM .ASDIR 05/02/17 Loratadine [Claritin 10 mg Tablet] 10 mg PO DAILYP PRN 05/02/17 Melatonin 5 mg PO QHS 05/02/17 Meloxicam [Mobic 7.5 mg Tablet] 7.5 mg PO DAILY 05/02/17 Allergies/Adverse Reactions: No Known Allergies Allergy (Unverified 05/01/17 21:34) - Social History Lives with: Care Home Family History: None, Other - unknown Parental Family History Reviewed: No Children Family History Reviewed: No Sibling(s) Family History Reviewed.: No Smoking Status: Unknown if Ever Smoked Frequency of Alcohol Use: None - Patient unable to provide any information at this time. Hx Recreational Drug Use: No Drugs: None - Patient unable to provide any information at this time. Hx Prescription Drug Abuse: No - Past Medical History Cardiac Medical History: Reports: Hx Atrial Fibrillation, Hx Hypercholesterolemia Pulmonary Medical History: Reports: Hx COPD, Hx Pneumonia Renal/ Medical History: Denies: Hx Peritoneal Dialysis Malignancy Medical History: Reports Hx Prostate Cancer Psychiatric Medical History: Reports: Hx Dementia Traumatic Medical History: Reports: None Review of systems ROS unobtainable: due to mental statu Ojective:Exam Vital Signs: Temp Pulse Resp BP Pulse Ox 98.6 F 66 24 H 164/93 H 100 05/05/17 19:54 05/05/17 19:54 05/05/17 19:54 05/05/17 19:54 05/05/17 19:54 Intake & Output 05/04/17 05/05/17 05/06/17 06:59 06:59 06:59 Intake Total 685 558 337 Output Total 0 Balance 685 558 337 Weight 78.7 kg 77.3 kg - General General Appearance: Sleeping/easily aroused In distress: None - Asleep, pens eyes to verbal stimulation or tactile stimulation. No attempt to speak to me or his . No aparent distress. Muscular,gentleman with healthy weight at present, but states he has lost a lot of weight this year. - HEENT Head: Normocephalic Conjunctiva: Normal Mucous membrane: Moist - Respiratory Respiratory Status: No respiratory distress - Cardiovascular Rhythm: Regular Pulses: Normal: Radial - Extremities Lower extremities: Normal inspection Foot: Normal - Neurological Cognition: Inattentive Orientation: Other Speech: Expressive aphasia Cranial nerves: Normal - Psychological Associated symptoms: Excessive sleeping Objective-Diagnostic Laboratory: 05/05/17 04:03 05/05/17 04:03 05/05/17 05/05/17 04:03 04:03 WBC 8.4 RBC 4.72 Hgb 13.7 Hct 41.2 MCV 87 MCH 29.0 MCHC 33.2 RDW 14.5 H Plt Count 184 Sodium 149.0 H Potassium 3.0 L* Chloride 110 H Carbon Dioxide 29 Anion Gap 10 BUN 35 H Creatinine 0.83 Est GFR ( Amer) > 60 Est GFR (Non-Af Amer) > 60 Glucose 124 H Calcium 9.6 Magnesium 2.7 H Plan and Recommendation Plan and Recommendation: is agreeable to patient returning to [facility]. He may go back using Medicare days, but I did speak with her about hospice to add exra care and symptom management as well as support for her. She said she would ask his doctor at SNF. Mrs. Jolley does not speak Cymro fluently, but she makes her thoughts clear and is very able to understand. She is devoed to her of 47 years, but she is realiastic about his decline and potential for withinthe next few months. Emotiional support offered to her and Palliative visits offered if ordered from [facility]. Insulin is ordered for sliding scale only. No recommendations for addition to care. Thank you for allowing me to participate in the care of the gentleman and support for his . Will follow while inpatient. - Time Spent with Patient Time spent with patient: 15 to 30 Minutes Time: 35 min Greater then 50% spent on Counseling & Coordination of Care: !% min with patient and , 25 min with chart review and consultation with nurse.
[2017-05-06] MEDS: ENALAPRILAT DIHYDRATE INJ/PF 1.25 MG/1 ML SDV IV PRN (01:08)
[2017-05-06] MEDS: PIPERACILLIN SODIUM/TAZOBACTAM 3.375 GM in NORMAL SALINE 100 ML IV SCH ×2 (02:22→08:45)
[2017-05-06] MEDS ORDERED: HYDRALAZINE HCL INJ/PF 20 MG/1 ML SDV ONE (02:34)
[2017-05-06] MEDS: HYDRALAZINE HCL INJ/PF 20 MG/1 ML SDV IV PRN ×2 (02:36→16:47)
[2017-05-06] MEDS ORDERED: HYDRALAZINE HCL INJ/PF 20 MG/1 ML SDV IV ONE (07:00)
[2017-05-06] MEDS ORDERED: POTASSIUM CHLORIDE 10 MEQ TABLET.SA PO ONE (07:45)
[2017-05-06] MEDS: IPRATROPIUM/ALBUTEROL 0.5-2.5 MG/3 ML AMPUL NEB SCH ×3 (07:48→19:31)
[2017-05-06] MEDS: PREDNISONE 20 MG TABLET PO SCH ×2 (08:44→10:12)
[2017-05-06] MEDS: FAMOTIDINE INJ/PF 20 MG/2 ML SDV IV SCH ×2 (08:44→21:19)
[2017-05-06] MEDS: AMLODIPINE BESYLATE 5 MG TABLET PO SCH (08:44)
[2017-05-06] MEDS: ENOXAPARIN SODIUM INJ 40 MG/0.4 ML DISP.SYRIN SUBCUT SCH (08:45)
[2017-05-06] MEDS: AMOXICILLIN TR/POT CLAVULANATE 500-125 MG TAB PO SCH ×2 (15:28→21:19)
--- NOTE | 2017-05-06 17:11 | PDOC PROGRESS REPORT ---
Subjective Progress Note for:: 05/06/17 Subjective:: Patient seen on morning rounds. He is resting in bed. Patient has history of dementia, and is presently confused to time and place. He shakes his head known asked if he is having any shortness of breath or pain. He continues to have a moist congested cough. Review of systems are unable to be obtained due to patient's mentation. Physical Exam Vital Signs: Temp Pulse Resp BP Pulse Ox 98.7 F 78 18 172/90 H 96 05/06/17 15:57 05/06/17 15:57 05/06/17 15:57 05/06/17 15:57 05/06/17 15:57 Intake & Output 05/05/17 05/06/17 05/07/17 06:59 06:59 06:59 Intake Total 558 577 342 Output Total 0 Balance 558 577 342 Weight 77.3 kg 77.4 kg General appearance: PRESENT: no acute distress, well-developed, well-nourished Head exam: PRESENT: atraumatic, normocephalic Eye exam: PRESENT: conjunctiva pink, EOMI, PERRLA. ABSENT: scleral icterus Ear exam: PRESENT: normal external ear exam Mouth exam: PRESENT: moist, tongue midline Neck exam: ABSENT: carotid bruit, JVD, lymphadenopathy, thyromegaly Respiratory exam: PRESENT: rhonchi, symmetrical, unlabored. ABSENT: rales, wheezes Cardiovascular exam: PRESENT: RRR. ABSENT: diastolic murmur, rubs, systolic murmur Pulses: PRESENT: normal dorsalis pedis pul Vascular exam: PRESENT: normal capillary refill GI/Abdominal exam: PRESENT: normal bowel sounds, soft. ABSENT: distended, guarding, mass, organolmegaly, rebound, tenderness Rectal exam: PRESENT: deferred Extremities exam: PRESENT: full ROM. ABSENT: calf tenderness, clubbing, pedal edema Neurological exam: PRESENT: alert, altered, CN II-XII grossly intact Psychiatric exam: PRESENT: appropriate affect, normal mood. ABSENT: homicidal ideation, suicidal ideation Skin exam: PRESENT: dry, intact, warm. ABSENT: cyanosis, rash Results Laboratory Results: 05/05/17 04:03 05/05/17 04:03 Impressions: Chest X-Ray 05/01/17 21:11 IMPRESSION: NO ACUTE RADIOGRAPHIC FINDING IN THE CHEST. Chest CT 05/01/17 21:21 IMPRESSION: NO ACUTE INTRATHORACIC PROCESS IDENTIFIED. NO SIGNIFICANT CHANGE FROM PRIOR STUDY. Head CT 05/01/17 21:21 IMPRESSION: CHRONIC CHANGES OF ATROPHY AND MICROVASCULAR ISCHEMIA. CHRONIC PARANASAL SINUS DISEASE. NO ACUTE PROCESS. Chest/Abdomen CTA 05/01/17 23:13 IMPRESSION: Study degraded by extensive motion artifact. No obvious pulmonary emboli. If clinical concern persists, a repeat study can be obtained when patient will be able to cooperate with positioning. Atherosclerotic calcifications with irregular intramural thrombus in the visualized abdominal aorta. 3.4 x 3.2 cm infrarenal abdominal aortic aneurysm. Compression deformity through the superior endplate of T12 vertebral body, of indeterminate age, new since the prior CT chest from 08/10/2009. Please correlate with point tenderness. If there is clinical concern for acute fracture, further evaluation with MRI can be obtained. Assessment & Plan - Diagnosis (1) Acute on chronic respiratory failure with hypoxia and hypercapnia Is this a current diagnosis for this admission?: YesPlan: Improve antibiotics and respiratory therapy treatment. There is obvious concern for recurrent aspiration pneumonia. His is aware and spoke with Palliative Care CNC MAINTENANCE TECHNICIAN today. She does not want PEG tube. She wants him to be able to eat despite risks of aspiration (2) HTN (hypertension) Qualifiers: Hypertension type: essential hypertension Qualified Code(s): I10 - Essential (primary) hypertension Is this a current diagnosis for this admission?: YesPlan: Patient is presently normotensive (3) Sepsis Qualifiers: Sepsis type: sepsis due to unspecified organism Qualified Code(s): A41.9 - Sepsis, unspecified organism Is this a current diagnosis for this admission?: YesPlan: Tachycardia, fever and hypotension resolved with IV antibiotics and fluids. (4) Dementia Qualifiers: Dementia type: unspecified type Dementia behavioral disturbance: without behavioral disturbance Qualified Code(s): F03.90 - Unspecified dementia without behavioral disturbance Is this a current diagnosis for this admission?: YesPlan: Patient was evaluated by speech and found to have high risk for aspiration. Family does not wish to have PEG tube placed. Palliative care was consulted for symptom management and goals of care discussion. - Time Time Spent with patient: 25-34 minutes Critical Time spent with patient: 15-24 minutes Medications reviewed and adjusted accordingly: Yes Anticipated discharge: Acute Rehab Within: within 24 hours
[2017-05-07] MEDS: AMOXICILLIN TR/POT CLAVULANATE 500-125 MG TAB PO SCH (05:33)
[2017-05-07] MEDS: IPRATROPIUM/ALBUTEROL 0.5-2.5 MG/3 ML AMPUL NEB SCH ×2 (07:59→14:17)
--- NOTE | 2017-05-07 08:34 | PDOC TRANSFER SUMMARY ---
General - Admit/Disc Date/PCP Admission Date/Primary Care Provider: 05/02/17 03:01 BEE JENNINGS Discharge Date: 05/07/17 - Discharge Diagnosis (1) Acute on chronic respiratory failure with hypoxia and hypercapnia Is this a current diagnosis for this admission?: YesSummary: Continue Augmentin bid x 7 more days, nebulizers,wean prednisone (2) HTN (hypertension) Is this a current diagnosis for this admission?: YesSummary: Norvasc 5 mg daily added (3) Sepsis Is this a current diagnosis for this admission?: YesSummary: Resolved (4) Dementia Is this a current diagnosis for this admission?: YesSummary: Unchanged. Patient at high risk for aspiration. Evaluated by speech therapy. Discussed with . She does not want patient to have feeding tube. She understands risk for aspiration. She wishes patient to be a DNR. He also had palliative care consult with [facility] - Additional Information Resuscitation Status: Full Code Discharge Diet: Regular Discharge Activity: Activity As Tolerated, Balance Activity w/Rest Home Medications: Acetaminophen [Tylenol 325 mg Tablet] 650 mg PO Q4HP PRN 05/02/17 Atorvastatin Calcium [Lipitor 20 mg Tablet] 20 mg PO QHS 05/02/17 Calcium Carbonate/Vitamin D3 [Oyster Shell 500-Vit D3 200 Tb] 1 tab PO DAILY 02/13 Leuprolide Acetate [Lupron Depot Inj 22.5 mg Kit] 22.5 mg IM .ASDIR 05/02/17 Loratadine [Claritin 10 mg Tablet] 10 mg PO DAILYP PRN 05/02/17 Melatonin 5 mg PO QHS 05/02/17 Meloxicam [Mobic 7.5 mg Tablet] 7.5 mg PO DAILY 05/02/17 Amlodipine Besylate [Norvasc 5 mg Tablet] 5 mg PO DAILY tablet 05/07/17 Amox Tr/Potassium Clavulanate [Augmentin 875-125 mg Tablet] 1 tab PO BID #20 tablet 05/07/17 Ipratropium/Albuterol Sulfate [Duoneb 3 ml Ampul] 3 ml [facility] [id number] vial.neb 07/16 Prednisone [Deltasone 20 mg Tablet] 20 mg PO DAILY #5 tablet 05/07/17 History of Present Illness Admission Date/PCP: 05/02/17 03:01 BEE JENNINGS Patient complains of: Difficulty breathing History of Present Illness: SOFÍA GREENBERG is a 77 year old male, resident of [facility] , with history of prostate cancer, hyperlipidemia, and advanced Alzheimer's, and no known history of congestive heart failure, who presents to the emergency room for evaluation of above complaint. Patient has been discussed with emergency room physician who evaluated the patient. Patient is aphasic, and basically not interactive with his surroundings, and is able to provide no history whatsoever in terms of acute or chronic events, review of systems, personal habits, family history, etc. No friends or family are present. No old inpatient records available for review.. . Was noted by [facility] staff to not have eaten his evening meal, along with coarse respiratory sounds. Was given to lisa watson at the [facility]. On EMS arrival, as he was receiving a second DuoNeb, saturation was 89%. No further information available this point in time. [email or web address] and are reviewed. X-ray summary results are listed below, with full report(s) reviewed. . Hospital Course Hospital Course: Patient was admitted to [facility] on the hospitalist's service. He was started on IV broad spectrum antibiotics after cultures were obtained. Patient's respiratory status remained tenous over the first 24 hrs. He had period of BIPAP therapy. He gradually improved over the next 24 hrs. He had speech therapy consult. He was found to have some aspiration with all oral intake. Discussed with patient' s who refused feeding tube and wishes to allow him to continue to eat despite aspiration risk. Palliative care consult was placed and they will follow as needed. Patient's oxygenation and congestion has improved. He was transitioned to oral antibiotics and will be transferred back to [facility] Physical Exam Vital Signs: Temp Pulse Resp BP Pulse Ox 98.5 F 71 24 H 169/79 H 98 05/07/17 04:44 05/07/17 04:44 05/07/17 04:44 05/07/17 04:44 05/07/17 04:44 Intake & Output 05/06/17 05/07/17 05/08/17 06:59 06:59 06:59 Intake Total 577 804 Output Total 0 Balance 577 804 Weight 77.4 kg 76.7 kg General appearance: PRESENT: no acute distress, well-developed, well-nourished Head exam: PRESENT: atraumatic, normocephalic Eye exam: PRESENT: conjunctiva pale Ear exam: PRESENT: normal external ear exam Mouth exam: PRESENT: moist, neck supple, tongue midline Teeth exam: PRESENT: edentulous Neck exam: ABSENT: carotid bruit, JVD, lymphadenopathy, thyromegaly Respiratory exam: PRESENT: rhonchi, symmetrical, unlabored Cardiovascular exam: PRESENT: RRR. ABSENT: diastolic murmur, rubs, systolic murmur Pulses: PRESENT: normal dorsalis pedis pul GI/Abdominal exam: PRESENT: normal bowel sounds, soft Rectal exam: PRESENT: deferred Extremities exam: PRESENT: full ROM. ABSENT: calf tenderness, clubbing, pedal edema Musculoskeletal exam: PRESENT: full ROM Neurological exam: PRESENT: alert, altered, CN II-XII grossly intact Psychiatric exam: PRESENT: flat affect Skin exam: PRESENT: dry, intact, warm. ABSENT: cyanosis, rash Results Laboratory Results: 05/05/17 04:03 05/05/17 04:03 Impressions: Chest X-Ray 05/01/17 21:11 IMPRESSION: NO ACUTE RADIOGRAPHIC FINDING IN THE CHEST. Chest CT 05/01/17 21:21 IMPRESSION: NO ACUTE INTRATHORACIC PROCESS IDENTIFIED. NO SIGNIFICANT CHANGE FROM PRIOR STUDY. Head CT 05/01/17 21:21 IMPRESSION: CHRONIC CHANGES OF ATROPHY AND MICROVASCULAR ISCHEMIA. CHRONIC PARANASAL SINUS DISEASE. NO ACUTE PROCESS. Chest/Abdomen CTA 05/01/17 23:13 IMPRESSION: Study degraded by extensive motion artifact. No obvious pulmonary emboli. If clinical concern persists, a repeat study can be obtained when patient will be able to cooperate with positioning. Atherosclerotic calcifications with irregular intramural thrombus in the visualized abdominal aorta. 3.4 x 3.2 cm infrarenal abdominal aortic aneurysm. Compression deformity through the superior endplate of T12 vertebral body, of indeterminate age, new since the prior CT chest from 08/10/2009. Please correlate with point tenderness. If there is clinical concern for acute fracture, further evaluation with MRI can be obtained. Transfer Plan - Disposition Transfer Plan: Transfer to [place].
[2017-05-07] MEDS: AMLODIPINE BESYLATE 5 MG TABLET PO SCH (09:02)
[2017-05-07] MEDS: PREDNISONE 20 MG TABLET PO SCH (09:02)
[2017-05-07] MEDS: FAMOTIDINE INJ/PF 20 MG/2 ML SDV IV SCH (09:02)
[2017-05-07] MEDS: HYDRALAZINE HCL INJ/PF 20 MG/1 ML SDV IV PRN (09:02)
[2017-05-07] MEDS: ENOXAPARIN SODIUM INJ 40 MG/0.4 ML DISP.SYRIN SUBCUT SCH (09:04)
[2017-05-07 09:05] VITALS: BP 175/94
[2017-05-07] MEDS ORDERED: FAMOTIDINE 20 MG TABLET PO SCH (22:00)
--- NOTE | 2017-05-12 15:11 | PROGRESS NOTE E ---
Progress Note NAME: SOFAÍ GREENBERG : 1940 AGE: 77Y DATE: 05/03/2017 ROOM: 301 SUBJECTIVE: Mr. Greenberg is lying in bed. He is more awake and alert than he was yesterday. The patient is consistently covering his face. I am uncertain if this is a baseline behavior. The patient has had no report of vomiting nor diarrhea. The patient did diurese well. The patient has been afebrile since 05/02/2017. His blood pressures have been in good range. The patient still requires significant amount of O2 and the patient is unable to voice any specific concerns at this time. REVIEW OF SYSTEMS: Rest of the review of systems negative. MEDICATIONS: Have been reviewed. OBJECTIVE: Mr. Greenberg is a 77-year-old male who is awake, alert, unable to fully assess orientation. Does appear much improving in comparison to yesterday. VITAL SIGNS: Are as follows: Temperature is 97.6, pulse 89, respirations 20, blood pressure is 154/64, oxygen saturation is 95% on 4 liters nasal cannula. SKIN: Warm and dry, no rash. He is not diaphoretic. HEENT: Pupils are equal, round, reactive to light and accommodation. Conjunctiva is pale. There is JVP to the level of the right clavicle. CVS: Heart is regular rate and rhythm, no murmur or rub. CHEST: The patient does have rhonchorous breath sounds. Crackles have improved. ABDOMEN: Symmetrical, abdomen. Is soft, nontender, nondistended. BACK: No CVA tenderness, sacral edema. EXTREMITIES: Without clubbing, cyanosis, edema. PSYCHIATRIC: Unable to fully assess. DIAGNOSTICS: Lab values are as follows: Hematology on 05/03/2017 WBCs are 9.4, hemoglobin is 13.6, hematocrit is 40.4. Platelet count is 157,000. Chemistry panel on 05/03/2017: Sodium is 143, potassium, chloride is 105, carbon dioxide 26. BUN 24, creatinine is 0.89. Glucose 151. Calcium is 9.8, magnesium is 2.4. IMPRESSION AND PLAN: 1. VASCULAR CONGESTION. THE PATIENT HAD NO PRIOR EVIDENCE OF EVIDENCE OF HEART FAILURE AND HE STILL HAS EVIDENCE OF BEING VOLUME UP. WE WILL HOLD MAINTENANCE FLUIDS FOR TODAY BUT NOT DIURESE. HE RESPONDED NICELY TO DIURESIS YESTERDAY. WE WILL REPLACE POTASSIUM. 2. POSSIBLE PNEUMONIA. DID HAVE SUSPICIOUS FOR ASPIRATION. THE PATIENT WAS TRANSITIONED TO A MORE BROAD COVERAGE, WHICH IS MUCH IMPROVED. WILL HAVE SPEECH THERAPY EVALUATION. 3. SEPSIS, MOST LIKELY SECONDARY TO NUMBER 2. THE PATIENT IS NO LONGER FEBRILE. WHITE COUNT HAS IMPROVED. WILL CONTINUE ANTIBIOTICS. CULTURES HAVE BEEN UNREMARKABLE AND BLOOD PRESSURES ARE MUCH BETTER. LACTIC ACID HAS TRENDED DOWN. 4. ALZHEIMER DISEASE. THE PATIENT OVERALL HAS BEEN ON STEADY DECLINE. DISPOSITION: The patient is a DO NOT RESUSCITATE/DO NOT INTUBATE. The patient's symptomatology and diagnostic findings will reevaluate in the a.m. Time spent on this followup including assessment, plan, physical examination, attempted patient education is 25 minutes. DICTATING PHYSICIAN: KEIKO RUSSO NP [id number] PHY#: [id number] ID: [id number] JOB#: [id number] ACCT: [id number] cc: > MTDD
== END 2017-05-07 15:18 | DRG 871 ==
LOC: ER 21:03 → UNDOADMIN 05-02 01:52 → EH 05-02 01:52 → 3N 05-02 03:45
PROVIDERS: ADMIT Family Medicine; ATTEND Family Medicine
PROC: 5A09457 Assistance with Respiratory Ventilation, 24-96 Consecutive Hours, Continuous Positive Airway Pressure (ICD-10-PCS; principal; 2017-05-01)
DX: A41.9 Sepsis, unspecified organism (principal); J96.21 Acute and chronic respiratory failure with hypoxia; J96.22 Acute and chronic respiratory failure with hypercapnia; J69.0 Pneumonitis due to inhalation of food and vomit; R47.01 Aphasia; Z51.5 Encounter for palliative care; R65.20 Severe sepsis without septic shock; G30.9 Alzheimer's disease, unspecified; F02.80 Dementia in other diseases classified elsewhere, unspecified severity, without behavioral disturbance, psychotic disturbance, mood disturbance, and anxiety; E78.5 Hyperlipidemia, unspecified; Z66 Do not resuscitate; I10 Essential (primary) hypertension; J44.9 Chronic obstructive pulmonary disease, unspecified; Z79.899 Other long term (current) drug therapy; Z85.46 Personal history of malignant neoplasm of prostate; Z79.52 Long term (current) use of systemic steroids; Z74.01 Bed confinement status
CPT/HCPCS: 36415; 70450; 71010; 71250; 71275; 80048; 80053; 81001; 82550; 82553; 82803; 82962; 83605; 83735; 83880; 84443; 84484; 85025; 85027; 87040; 87804; 93005; 93010; 94660; 96365; 96368; 99291; G8996-GN; G8997-GN; G8998-GN; J0360; J0456; J0696; J1650; J1940; J1956; J2543; J2920; J3480; J3490; J7030; J7040; J7060; J7512; J7620; S0028